=== PATIENT | female | born 1950 | race American Indian/Alaskan Native ===

== ENCOUNTER 2021-05-17 03:20 | Emergency (ER) | payer MEDICARE ==
[2021-05-17 06:16] LABS: Basophils # (Auto) 0.1 K/mm3 (0.0-0.1); Basophils % (Auto) 0.8 % (0.0-1.8); Eosinophils # (Auto) 0.1 K/mm3 (0.0-0.4); Eosinophils % (Auto) 1.3 % (0.0-4.3); Hematocrit 40.8 % (30.3-42.9); Hemoglobin 12.7 gm/dl (10.1-14.3); Lymphocytes # (Auto) 1.7 K/mm3 (1.2-5.4); Lymphocytes % (Auto) 24.7 % (13.4-35.0); Mean Corpuscular HGB Conc 31 % (30-34); Mean Corpuscular Volume 80 fl (79-97); Monocytes # (Auto) 0.5 K/mm3 (0.0-0.8); Monocytes % (Auto) 7.2 % (0.0-7.3); Platelet Count 249 K/mm3 (140-440); Red Blood Count 5.14 M/mm3 (3.65-5.03); Red Cell Distribution Width 14.9 % (13.2-15.2)
[2021-05-17 06:37] LABS: Albumin 4.7 g/dL (3.9-5); Calcium 9.7 mg/dL (8.4-10.2)
[2021-05-17 06:58] LABS: Bilirubin,Urine NEG (Negative); Blood,Urine NEG (Negative); Color,Urine Yellow (Yellow); Protein,Urine <15 mg/dL mg/dL (Negative); Urobilinogen,Urine < 2.0 mg/dL (<2.0)
[2021-05-17 07:05] LABS: RBC,Urine < 1.0 /HPF (0.0-6.0); WBC,Urine < 1.0 /HPF (0.0-6.0)
[2021-05-17] MEDS ORDERED: ONDANSETRON 4 MG/2 ML INJ IV ONE (08:47)
[2021-05-17] MEDS ORDERED: diphenhydrAMINE 50 MG/ML VIAL IV ONE (08:47)
[2021-05-17] MEDS ORDERED: FAMOTIDINE 20 MG/2 ML INJ IV ONE (08:47)
[2021-05-17] MEDS ORDERED: MORPHINE 4 MG/1 ML INJ IV ONE (08:47)
[2021-05-17] MEDS ORDERED: methylPREDNISolone Sod Succinate 125 MG/2 ML INJ IV ONE (08:47)
--- NOTE | 2021-05-17 08:49 | Emergency Department Report ---
ED General Adult HPI - General Chief complaint: Abdominal Pain Stated complaint: RIGHT SIDE ABD PAIN PUI?: No Time Seen by Provider: 05/17/21 08:40 Source: patient, RN notes reviewed, old records reviewed Mode of arrival: Ambulatory Limitations: No Limitations - History of Present Illness Initial comments: The patient was evaluated in the emergency department for symptoms described in the history of present illness. He/she was evaluated in the context of the global COVID-19 pandemic, which necessitated consideration that the patient might be at risk for infection with the virus that causes COVID-19. Institutional protocols and algorithms that pertain to the evaluation of patients at risk for COVID-19 are in a state of rapid change based on information released by regulatory bodies including the CDC and federal and [facility] organizations. These policies and algorithms were followed during the patient's care in the emergency department. Please note that these policies, procedures and recommendations changed on a rapid basis. Primary CARE doctor: Dr. Chanda Rangel The patient is a 70-year-old female. She is not known to myself previously. She reports that she is COVID-19 vaccinated. She presents to the ER today with complaint of nontraumatic abdominal pain. The abdominal pain is right lower quadrant, and right flank and radiates around to the back. Positive nausea. No vomiting. No fever. Denies severe headache, neck pain, chest pain, hematemesis, bright red blood per rectum. Pain is sharp and throbbing, increases with palpation and decreases with rest. -: Gradual, hour(s), days(s) Location: abdomen Radiation: back Severity scale (0 -10): 9 Quality: other Consistency: other Improves with: other Worsens with: other Associated Symptoms: other - Related Data Previous Rx's Medication Instructions Recorded Last Taken Type Acetaminophen [Non-Aspirin Extra 500 mg PO Q6HR PRN #30 tablet 05/17/21 Unknown Rx Strength] Ibuprofen [Motrin] 200 mg PO Q6H PRN #30 tablet 05/17/21 Unknown Rx Ondansetron [Zofran Odt] 4 mg PO Q8HR PRN #20 tab.rapdis 05/17/21 Unknown Rx Allergies Allergy/AdvReac Type Severity Reaction Status Date / Time Penicillins Allergy Shortness Verified 05/17/21 05:34 of Breath shellfish derived Allergy Shortness Verified 05/17/21 05:36 of Breath ED Review of Systems ROS: Stated complaint: RIGHT SIDE ABD PAIN Other details as noted in HPI ED Past Medical Hx - Past Medical History Previous Medical History?: Yes Hx Asthma: Yes - Surgical History Past Surgical History?: Yes Additional Surgical History: Bilateral knee replacements, Ectopic - Medications Home Medications: Home Medications Medication Instructions Recorded Confirmed Last Taken Type Acetaminophen [Non-Aspirin Extra 500 mg PO Q6HR PRN #30 tablet 05/17/21 Unknown Rx Strength] Ibuprofen [Motrin] 200 mg PO Q6H PRN #30 tablet 05/17/21 Unknown Rx Ondansetron [Zofran Odt] 4 mg PO Q8HR PRN #20 tab.rapdis 05/17/21 Unknown Rx ED Physical Exam - General Limitations: No Limitations General appearance: alert, obese - Head Head exam: Present: atraumatic, normocephalic - Eye Eye exam: Present: normal appearance, EOMI. Absent: nystagmus - ENT ENT exam: Present: normal exam, normal orophraynx, mucous membranes moist, normal external ear exam - Neck Neck exam: Present: normal inspection, full ROM. Absent: tenderness, meningismus - Respiratory Respiratory exam: Present: normal lung sounds bilaterally. Absent: respiratory distress, wheezes, rales, rhonchi, stridor, decreased breath sounds - Cardiovascular Cardiovascular Exam: Present: regular rate, normal rhythm, normal heart sounds. Absent: bradycardia, tachycardia, irregular rhythm, systolic murmur, diastolic murmur, rubs, gallop - GI/Abdominal GI/Abdominal exam: Present: soft, tenderness, other (There is right flank, there is right lower quadrant tenderness). Absent: distended, guarding, rebound, rigid, pulsatile mass - Extremities Exam Extremities exam: Present: normal inspection, full ROM, other (2+ pulses noted in the bilateral upper and lower extremities. There is no palpable cord. negative Homans sign. Muscular compartments are soft. The pelvis is stable.). Absent: pedal edema, calf tenderness - Back Exam Back exam: Present: normal inspection, full ROM. Absent: tenderness, CVA tenderness (R), CVA tenderness (L), paraspinal tenderness, vertebral tenderness - Neurological Exam Neurological exam: Present: alert, oriented X3, normal gait, other (No facial droop. Tongue midline. Extraocular movements intact bilaterally. Facial se nsation intact to light touch in V1, V2, V3 distribution bilaterally. 5 and a 5 strength in 4 extremities. Sensation intact to light touch in 4 extremities.). Absent: motor sensory deficit - Psychiatric Psychiatric exam: Present: normal affect, normal mood - Skin Skin exam: Present: warm, dry, intact, normal color. Absent: rash ED Course Vital Signs 05/17/21 05:40 Temperature 98.9 F Pulse Rate 78 Respiratory 20 Rate Blood Pressure 153/78 [Right] O2 Sat by Pulse 98 Oximetry ED Medical Decision Making - Lab Data Result diagrams: 05/17/21 05:57 05/17/21 05:57 Vital Signs 05/17/21 05:40 Temperature 98.9 F Pulse Rate 78 Respiratory 20 Rate Blood Pressure 153/78 [Right] O2 Sat by Pulse 98 Oximetry Lab Results 05/17/21 05/17/21 05/17/21 Range/Units 05:57 05:57 Unknown WBC 6.9 (4.5-11.0) K/mm3 RBC 5.14 H (3.65-5.03) M/mm3 Hgb 12.7 (10.1-14.3) gm/dl Hct 40.8 (30.3-42.9) % MCV 80 (79-97) fl MCH 25 L (28-32) pg MCHC 31 (30-34) % RDW 14.9 (13.2-15.2) % Plt Count 249 (140-440) K/mm3 Lymph % (Auto) 24.7 (13.4-35.0) % Wilkinson % (Auto) 7.2 (0.0-7.3) % Eos % (Auto) 1.3 (0.0-4.3) % Baso % (Auto) 0.8 (0.0-1.8) % Lymph # (Auto) 1.7 (1.2-5.4) K/mm3 Wilkinson # (Auto) 0.5 (0.0-0.8) K/mm3 Eos # (Auto) 0.1 (0.0-0.4) K/mm3 Baso # (Auto) 0.1 (0.0-0.1) K/mm3 Seg Neutrophils % 66.0 (40.0-70.0) % Seg Neutrophils # 4.5 (1.8-7.7) K/mm3 Sodium 140 (137-145) mmol/L Potassium 3.7 (3.6-5.0) mmol/L Chloride 100.9 (98-107) mmol/L Carbon Dioxide 25 (22-30) mmol/L Anion Gap 18 mmol/L BUN 15 (7-17) mg/dL Creatinine 1.0 (0.6-1.2) mg/dL Estimated GFR 55 ml/min BUN/Creatinine Ratio 15 % Glucose 134 H (65-100) mg/dL Calcium 9.7 (8.4-10.2) mg/dL Total Bilirubin 0.30 (0.1-1.2) mg/dL AST 19 (5-40) units/L ALT 17 (7-56) units/L Alkaline Phosphatase 76 (35-129) units/L Total Protein 7.7 (6.3-8.2) g/dL Albumin 4.7 (3.9-5) g/dL Albumin/Globulin Ratio 1.6 % Lipase 37 (13-60) units/L Urine Color Yellow (Yellow) Urine Turbidity Clear (Clear) Urine pH 5.0 (5.0-7.0) Ur Specific [place] 1.015 (1.003-1.030) Urine Protein <15 mg/dl (Negative) mg/dL Urine Glucose (UA) Neg (Negative) mg/dL Urine Ketones Neg (Negative) mg/dL Urine Blood Neg (Negative) Urine Nitrite Neg (Negative) Urine Bilirubin Neg (Negative) Urine Urobilinogen < 2.0 (<2.0) mg/dL Ur Leukocyte Esterase Neg (Negative) Urine WBC (Auto) < 1.0 (0.0-6.0) /HPF Urine RBC (Auto) < 1.0 (0.0-6.0) /HPF - EKG Data -: EKG Interpreted by Nm EKG shows normal: sinus rhythm Rate: normal - EKG Data When compared to previous EKG there are: previous EKG unavailable 05/17/21 10:58 The EKG is interpreted at 08: 35 Sinus rhythm, 73 bpm. Normal axis, normal P wave axis, left ventricular hypertrophy, QTC 4 4 6 ms. Abnormal EKG. Not a STEMI. - Radiology Data Radiology results: pending, report reviewed, image reviewed CT ABDOMEN AND PELVIS WITH CONTRAST INDICATION / CLINICAL INFORMATION: rlq right flank abd pain 100 ML OMNI 300 . TECHNIQUE: Axial CT images were obtained through the abdomen and pelvis after 100 cc of Omnipaque 300 IV contrast. Sagittal and coronal reformatted images. All CT scans at this location are p erformed using CT dose reduction for ALARA by means of automated exposure control. COMPARISON: None available. FINDINGS: LOWER CHEST: No significant abnormality. LIVER: No significant abnormality. GALLBLADDER: No significant abnormality. BILE DUCTS: No significant abnormality. PANCREAS: No significant abnormality. SPLEEN: No significant abnormality. ADRENALS: No significant abnormality. RIGHT KIDNEY and URETER: No significant abnormality. LEFT KIDNEY and URETER: No significant abnormality. STOMACH and SMALL BOWEL: No significant abnormality. COLON: No significant abnormality. Mild diverticulosis is noted distally. APPENDIX: No significant abnormality. PERITONEUM: No free fluid. No free air. No fluid collection. LYMPH NODES: No significant adenopathy. AORTA and ARTERIES: Mild atherosclerotic calcification without acute abnormality. IVC and VEINS: No significant abnormality. URINARY BLADDER: No significant abnormality. REPRODUCTIVE ORGANS: No significant abnormality. ADDITIONAL FINDINGS: None. SKELETAL SYSTEM: Mild degenerative changes in the lower lumbar spine. IMPRESSION: No acute inflammatory process. No clear explanation for right lower quadrant or right flank pain. Signer Name: Manjit Marrero Jr, MD Signed: 05/17/2021 9:32 AM Workstation Name: [id number] - Medical Decision Making Differential diagnosis, including but not limited to: Appendicitis, renal colic, colitis, diverticulitis, constipation, obstruction, radicular pain Allodynia Assessment and plan: 70-year-old female, who was afebrile, with reassuring vital signs, who presents with right lower quadrant and right flank pain. Laboratory studies unremarkable. EKG unremarkable. Discussed recommendation for CT scan of the abdomen pelvis with IV contrast. Patient reports nonspecific rash associated with iodine, she is not quite certain if she has had IV contrast in the past, but to the best of her knowledge, does not have anaphylactic or anaphylactoid association with iodine administration. Patient premedicated appropriately, and a CT scan of the abdomen pelvis is obtained, which shows no acute findings. On repeat examination, patient on cell phone, and in no acute distress, with a soft benign belly. Explained significance of laboratory studies and CT scan findings to patient. Have recommended 24-hour follow-up for repeat checkup and evaluation. Given that she does not have significant abdominal tenderness at this time, given that she appears to be resting comfortably, has unremarkable laboratory studies, vital signs, diagnostic work-up and evaluation, and reports reliability to follow-up in 24 hours for repeat checkup, I think discharge with close return precautions is reasonable. I have discussed this with the patient. She articulates understanding. Return precautions reviewed. Critical care attestation.: If time is entered above; I have spent that time in minutes in the direct care of this critically ill patient, excluding procedure time. ED Disposition Clinical Impression: Right sided abdominal pain Disposition: HOME / SELF CARE / HOMELESS Is pt being admited?: No Does the pt Need Aspirin: No Condition: Good Instructions: Abdominal Pain (ED), Abdominal Pain, Adult, [id number] Additional Instructions: Do not take metformin medication for the next 2 days, if patient takes this medication. Please take the prescribed pain medication and nausea medications as needed and directed. Recommend follow-up in 1 day / 24 hours with either primary care doctor, urgent care center, or return to this emergency room for repeat checkup, evaluation, and repeat abdominal examination. Laboratory studies, EKG, urinalysis, CT scan of the abdomen pelvis did not demonstrate any acutely abnormal findings, or any actionable findings that would require emergent intervention. Please return to the emergency room right away with new pain, worsened pain, migration of pain, projectile vomiting, change in mental status, confusion, inability tolerate liquid feeds, new, worsened or different symptoms not present on the initial emergency room evaluation Referrals: [facility] [Provider Group] - 24 Hours
[2021-05-17] MEDS ORDERED: SODIUM CHLORIDE 0.9% 1000 ML 1,000 ML ONE (09:13)
--- NOTE | 2021-05-17 10:37 | Cat Scan Report ---
CT ABDOMEN AND PELVIS WITH CONTRAST INDICATION / CLINICAL INFORMATION: rlq right flank abd pain 100 ML OMNI 300 . TECHNIQUE: Axial CT images were obtained through the abdomen and pelvis after 100 cc of Omnipaque 300 IV contras t. Sagittal and coronal reformatted images. All CT scans at this location are performed using CT dose reduction for ALARA by means of automated exposure control. COMPARISON: None available. FINDINGS: LOWER CHEST: No significant abnormality. LIVER: No significant abnormality. GALLBLADDER: No significant abnormality. BILE DUCTS: No significant abnormality. PANCREAS: No significant abnormality. SPLEEN: No significant abnormality. ADRENALS: No significant abnormality. RIGHT KIDNEY and URETER: No significant abnormality. LEFT KIDNEY and URETER: No significant abnormality. STOMACH and SMALL BOWEL: No significant abnormality. COLON: No significant abnormality. Mild diverticulosis is noted distally. APPENDIX: No significant abnormality. PERITONEUM: No free fluid. No free air. No fluid collection. LYMPH NODES: No significant adenopathy. AORTA and ARTERIES: Mild atherosclerotic calcification without acute abnormality. IVC and VEINS: No significant abnormality. URINARY BLADDER: No significant abnormality. REPRODUCTIVE ORGANS: No significant abnormality. ADDITIONAL FINDINGS: None. SKELETAL SYSTEM: Mild degenerative changes in the lower lumbar spine. IMPRESSION: No acute inflammatory process. No clear explanation for right lower quadrant or right flank pain. Signer Name: Manjit Marrero Jr, MD Signed: 05/17/2021 10:32 AM Workstation Name: [id number]
[2021-05-17] MEDS ORDERED: ACETAMINOPHEN 325 MG TAB PO STA (11:09)
[2021-05-17 11:23] VITALS: BP 162/69
--- NOTE | 2021-05-18 08:47 | Electrocardiograph Report ---
[facility] Test Date: 2021-05-17 Test Time: 08:35:37 Pat Name: FAVIAN ORR Department: Room: Gender: F Sand Temperer: IRLANDA : 1950 Requested By: HARSHAL CARTWRIGHT Order Number: [id number] Reading MD: Blayne Abreu Measurements Intervals [place] Rate: 73 P: 73 MN: 168 QRS: 35 QRSD: 76 T: 55 QT: 405 QTc: 446 Interpretive Statements Sinus rhythm nonspecific st-t No previous ECG available for comparison Electronically Signed On 05-18-2021 8:47:21 EST by Blayne Abreu
== END 2021-05-17 11:46 | disposition home or self-care (01) ==
LOC: ED 03:20
DX: R10.31 Right lower quadrant pain (principal); J45.909 Unspecified asthma, uncomplicated; Z88.0 Allergy status to penicillin; Z91.013 Allergy to seafood
CPT/HCPCS: 36415; 74177; 80053; 81001; 83690; 85025; 93005; 93010; 96374; 96375; 99284; J1200; J2270; J2405; J2930; J3490; J7030; Q9967; Q0162